=== PATIENT | female | born 1995 | race Caucasian/White ===

== ENCOUNTER 2017-06-28 16:27 | Inpatient (IN) | payer OTHER, SELFPAY ==
[~2017-06-28] VITALS: Ht 167.6 cm; Wt 62.4 kg
[~2017-06-28 16:27] MED LIST: ACET325 PO; CIPR500 PO; DOCU100 PO; FAMO20 PO; FLUC150A PO; LEVFLO500 PO; META800 PO; MIRALAX17 GM PO; NO ROUTINE MEDS; ONDA4ODT MM; SIME80CH PO; TRAM50 PO; Vitafol-Ob+Dha1 EACH PO
[2017-06-28 17:28] LABS: Source, Urine Clean Catch
[2017-06-28 17:30] LABS: BASOPHILS ABSOLUTE AUTO 0.05 K/mm3 (0.00-0.23); BASOPHILS PERCENT AUTO 0 % (0-2); EOSINOPHILS ABSOLUTE AUTO 0.14 K/mm3 (0.00-0.68); EOSINOPHILS PERCENT AUTO 1 % (0-6); Hematocrit 38.1 % (33.0-51.0); Hemoglobin 12.9 g/dL (11.5-16.0); IMMATURE GRAN ABSOLUTE AUTO 0.03 K/mm3 (0.00-0.10); IMMATURE GRAN PERCENT AUTO 0 % (0-1); LYMPHOCYTES ABSOLUTE AUTO 2.16 K/mm3 (0.84-5.20); LYMPHOCYTES PERCENT AUTO 18 % (21-46); MONOCYTES ABSOLUTE AUTO 0.72 K/mm3 (0.16-1.47); MONOCYTES PERCENT AUTO 6 % (4-13); Mean Corpuscular HGB 30.4 pg (26.0-34.0); Mean Corpuscular HGB Conc 33.9 g/dL (31.5-36.5); Mean Corpuscular Volume 90 fL (80-100); Mean Platelet Volume 10.2 fL (9.1-12.4); NEUTROPHILS ABSOLUTE AUTO 8.81 K/mm3 (1.96-9.15); NEUTROPHILS PERCENT AUTO 74 % (41-73); Platelet Count 196 K/mm3 (150-400); RDW Coefficient Variation 12.2 % (11.7-14.2); RDW Standard Deviation 39.8 fL (35.1-46.3); Red Blood Cell Count 4.25 M/mm3 (3.80-5.20); White Blood Cell Count 11.91 K/mm3 (4.00-11.30)
[2017-06-28 17:38] LABS: Appearance, Urine Cloudy (Clear); Bilirubin, Urine Neg (Neg); Blood, Urine 5+ (Neg); Glucose Qualitative, Urine Neg (Neg); Ketones, Urine 1+ (Neg); Leukocyte Esterase, Urine 3+ (Neg); Nitrite, Urine Pos (Neg); Protein, Urine 3+ (Neg); Urobilinogen, Urine NORM (Normal)
[2017-06-28 17:52] LABS: Color, Urine Yellow (P-Yellow)
[2017-06-28 17:54] LABS: Bacteria Few /hpf; Squamous Epithelial Cells Few /hpf (Few); White Blood Cells, Urine 25-50 /hpf (0-5)
[2017-06-28 17:54] LABS: Alanine Aminotransfer (ALT/SGP 17 U/L (12-78); Albumin, Blood 4.1 g/dL (3.4-5.0); Albumin/Globulin Ratio 1.1 (0.8-1.8); Alk Phos 65 U/L (50-136); Anion Gap 9 mmol/L (6-16); Aspartate Aminotrans (AST/SGOT 15 U/L (12-37); Bilirubin, Total 0.4 mg/dL (0.1-1.0); Blood Urea Nitrogen 10 mg/dL (8-24); Bun/Creatinine Ratio 17.4 (12.0-20.0); CO2, Blood 24 mmol/L (21-32); Calcium, Blood 9.2 mg/dL (8.5-10.1); Chloride, Blood 105 mmol/L (98-108); Creatinine, Blood 0.58 mg/dL (0.40-1.00); Globulin, Blood 3.7 g/dL (2.2-4.0); Glomerular Filtration Rate >60 (60-); Glucose, Blood 88 mg/dL (70-99); Potassium, Blood 3.4 mmol/L (3.5-5.5); Sodium, Blood 138 mmol/L (136-145); Total Protein, Blood 7.8 g/dL (6.4-8.2)
[2017-06-29] MEDS ORDERED: CRANBERRY250 MG PO (05:27)
[2017-06-29 06:07] LABS: BASOPHILS ABSOLUTE AUTO 0.03 K/mm3 (0.00-0.23); BASOPHILS PERCENT AUTO 0 % (0-2); EOSINOPHILS ABSOLUTE AUTO 0.12 K/mm3 (0.00-0.68); EOSINOPHILS PERCENT AUTO 2 % (0-6); Hematocrit 30.9 % (33.0-51.0); Hemoglobin 10.2 g/dL (11.5-16.0); IMMATURE GRAN ABSOLUTE AUTO 0.02 K/mm3 (0.00-0.10); IMMATURE GRAN PERCENT AUTO 0 % (0-1); LYMPHOCYTES ABSOLUTE AUTO 2.41 K/mm3 (0.84-5.20); LYMPHOCYTES PERCENT AUTO 30 % (21-46); MONOCYTES ABSOLUTE AUTO 0.72 K/mm3 (0.16-1.47); MONOCYTES PERCENT AUTO 9 % (4-13); Mean Corpuscular Volume 91 fL (80-100); Mean Platelet Volume 10.2 fL (9.1-12.4); NEUTROPHILS ABSOLUTE AUTO 4.82 K/mm3 (1.96-9.15); NEUTROPHILS PERCENT AUTO 59 % (41-73); Platelet Count 142 K/mm3 (150-400); RDW Coefficient Variation 12.4 % (11.7-14.2); RDW Standard Deviation 40.9 fL (35.1-46.3); White Blood Cell Count 8.12 K/mm3 (4.00-11.30)
[2017-06-29 06:39] LABS: Albumin, Blood 2.7 g/dL (3.4-5.0); Anion Gap 6 mmol/L (6-16); Blood Urea Nitrogen 13 mg/dL (8-24); Bun/Creatinine Ratio 20.9 (12.0-20.0); CO2, Blood 24 mmol/L (21-32); Chloride, Blood 112 mmol/L (98-108); Creatinine, Blood 0.62 mg/dL (0.40-1.00); Glomerular Filtration Rate >60 (60-); Glucose, Blood 93 mg/dL (70-99); Phosphorus, Blood 4.1 mg/dL (2.5-4.9); Potassium, Blood 3.7 mmol/L (3.5-5.5); Sodium, Blood 142 mmol/L (136-145)
[2017-06-29 06:40] LABS: Calcium, Blood 7.7 mg/dL (8.5-10.1)
[2017-07-01 05:30] LABS: BASOPHILS ABSOLUTE AUTO 0.02 K/mm3 (0.00-0.23); BASOPHILS PERCENT AUTO 0 % (0-2); EOSINOPHILS ABSOLUTE AUTO 0.17 K/mm3 (0.00-0.68); EOSINOPHILS PERCENT AUTO 3 % (0-6); Hematocrit 30.8 % (33.0-51.0); Hemoglobin 10.3 g/dL (11.5-16.0); IMMATURE GRAN ABSOLUTE AUTO 0.01 K/mm3 (0.00-0.10); IMMATURE GRAN PERCENT AUTO 0 % (0-1); LYMPHOCYTES ABSOLUTE AUTO 2.13 K/mm3 (0.84-5.20); LYMPHOCYTES PERCENT AUTO 38 % (21-46); MONOCYTES ABSOLUTE AUTO 0.35 K/mm3 (0.16-1.47); MONOCYTES PERCENT AUTO 6 % (4-13); Mean Corpuscular HGB 30.4 pg (26.0-34.0); Mean Corpuscular HGB Conc 33.4 g/dL (31.5-36.5); Mean Corpuscular Volume 91 fL (80-100); Mean Platelet Volume 10.1 fL (9.1-12.4); NEUTROPHILS ABSOLUTE AUTO 2.97 K/mm3 (1.96-9.15); NEUTROPHILS PERCENT AUTO 53 % (41-73); Platelet Count 149 K/mm3 (150-400); RDW Standard Deviation 39.7 fL (35.1-46.3); Red Blood Cell Count 3.39 M/mm3 (3.80-5.20); White Blood Cell Count 5.65 K/mm3 (4.00-11.30)
[2017-07-01 05:49] LABS: Anion Gap 6 mmol/L (6-16); Blood Urea Nitrogen 9 mg/dL (8-24); CO2, Blood 27 mmol/L (21-32); Calcium, Blood 7.8 mg/dL (8.5-10.1); Chloride, Blood 109 mmol/L (98-108); Creatinine, Blood 0.64 mg/dL (0.40-1.00); Glomerular Filtration Rate >60 (60-); Glucose, Blood 106 mg/dL (70-99); Sodium, Blood 142 mmol/L (136-145)
[2017-07-01] MEDS ORDERED: ACET325 PO (08:53)
[2017-07-01] MEDS ORDERED: FLUC150A PO (08:54)
[2017-07-01] MEDS ORDERED: DOCU100 PO (08:54)
[2017-07-01] MEDS ORDERED: ONDA4ODT PO (08:55)
[2017-07-01] MEDS ORDERED: AMOX875 PO (08:56)
[2017-07-01] MEDS ORDERED: TRAM50 PO (08:57)
[2017-10-10] MEDS ORDERED: AZO CRANBERRY1 EAC1 PO (14:34)
== END 2017-07-01 14:00 | disposition home or self-care (01) | DRG 690 ==
LOC: ER 16:27 → SURS 20:32
PROVIDERS: Emergency Medicine; Family Medicine; Internal Medicine
DX: N12 Tubulo-interstitial nephritis, not specified as acute or chronic (principal); E83.51 Hypocalcemia; E88.09 Other disorders of plasma-protein metabolism, not elsewhere classified; B96.20 Unspecified Escherichia coli [E. coli] as the cause of diseases classified elsewhere; E87.6 Hypokalemia; F17.210 Nicotine dependence, cigarettes, uncomplicated; R07.9 Chest pain, unspecified
CPT/HCPCS: 36415; 76770; 80048; 80053; 80069; 81001; 81025; 83605; 83690; 85025; 87040; 87077; 87086; 87186; 93005; 93010; 96361; 96374; 96375; 99285; J0696; J1170; J1885; J2405; J3010; J3480; J7030

== ENCOUNTER 2017-09-30 17:08 | Day surgery (SDC) | payer OTHER, SELFPAY ==
[~2017-09-30 17:08] MED LIST changes: +AMOX875 PO; +CRANBERRY250 MG PO; +ONDA4ODT PO
== END 2017-09-30 18:02 | disposition home or self-care (01) ==
LOC: ATC 17:08
DX: N93.8 Other specified abnormal uterine and vaginal bleeding (principal)
CPT/HCPCS: 96374; J0696

== ENCOUNTER 2017-10-01 07:13 | Day surgery (SDC) | payer OTHER, SELFPAY | END 2017-10-01 14:52 | disposition home or self-care (01) | LOC: ATC 07:13 | DX: N93.8 Other specified abnormal uterine and vaginal bleeding (principal); R53.83 Other fatigue; N12 Tubulo-interstitial nephritis, not specified as acute or chronic | CPT/HCPCS: 96374; J0696 ==

== ENCOUNTER 2017-10-03 00:24 | Day surgery (SDC) | payer OTHER, SELFPAY ==
[2017-10-10] MEDS ORDERED: AZO CRANBERRY1 EAC1 PO (14:34)
== END 2017-10-03 16:34 | disposition home or self-care (01) ==
LOC: ATC 00:24
DX: N10 Acute pyelonephritis (principal); N93.8 Other specified abnormal uterine and vaginal bleeding
CPT/HCPCS: 96374; J0696

== ENCOUNTER 2017-10-04 00:10 | Day surgery (SDC) | payer OTHER, SELFPAY ==
[2017-10-10] MEDS ORDERED: AZO CRANBERRY1 EAC1 PO (14:34)
== END 2017-10-04 17:01 | disposition home or self-care (01) ==
LOC: ATC 00:10
DX: N10 Acute pyelonephritis (principal); N93.8 Other specified abnormal uterine and vaginal bleeding
CPT/HCPCS: 96374; J0696

== ENCOUNTER 2017-10-05 01:03 | Day surgery (SDC) | payer OTHER, SELFPAY ==
[2017-10-10] MEDS ORDERED: AZO CRANBERRY1 EAC1 PO (14:34)
== END 2017-10-05 17:08 | disposition home or self-care (01) ==
LOC: ATC 01:03
DX: N10 Acute pyelonephritis (principal); N93.8 Other specified abnormal uterine and vaginal bleeding
CPT/HCPCS: 96374; J0696

== ENCOUNTER 2017-10-06 07:26 | Day surgery (SDC) | payer OTHER, SELFPAY ==
[2017-10-10] MEDS ORDERED: AZO CRANBERRY1 EAC1 PO (14:34)
== END 2017-10-06 17:15 | disposition home or self-care (01) ==
LOC: ATC 07:26
DX: N10 Acute pyelonephritis (principal); N93.9 Abnormal uterine and vaginal bleeding, unspecified
CPT/HCPCS: 96374; J0696

== ENCOUNTER 2017-10-07 00:27 | Day surgery (SDC) | payer OTHER, SELFPAY ==
[2017-10-10] MEDS ORDERED: AZO CRANBERRY1 EAC1 PO (14:34)
== END 2017-10-07 23:09 | disposition home or self-care (01) ==
LOC: ATC 00:27
DX: N10 Acute pyelonephritis (principal); N93.8 Other specified abnormal uterine and vaginal bleeding
CPT/HCPCS: J0696

== ENCOUNTER 2017-10-08 00:14 | Day surgery (SDC) | payer OTHER, SELFPAY ==
[2017-10-10] MEDS ORDERED: AZO CRANBERRY1 EAC1 PO (14:34)
== END 2017-10-08 17:35 | disposition home or self-care (01) ==
LOC: ATC 00:14
DX: N10 Acute pyelonephritis (principal); N93.8 Other specified abnormal uterine and vaginal bleeding
CPT/HCPCS: 96365; J0696

== ENCOUNTER → 2018-01-26 | Outpatient (CLI) | payer OTHER ==
[~2018-01-26] MED LIST changes: +AZO CRANBERRY1 EAC1 PO
== END | disposition home or self-care (01) ==
LOC: LAB SHORT 13:20 → PLD 13:20
DX: R87.810 Cervical high risk human papillomavirus (HPV) DNA test positive (principal); R87.610 Atypical squamous cells of undetermined significance on cytologic smear of cervix (ASC-US); N72 Inflammatory disease of cervix uteri
CPT/HCPCS: 88305

== ENCOUNTER → 2018-02-03 | Outpatient (CLI) | payer OTHER ==
[2018-02-04 09:55] LABS: Candida species (DNA Probe) Negative (NEGATIVE); G. vaginalis (DNA Probe) Positive (NEGATIVE); T. vaginalis (DNA Probe) Negative (NEGATIVE)
[2018-02-08 21:07] LABS: CHLAMYDIA TRACHOMATIS, NAA Negative (Negative); NEISSERIA GONORRHOEAE, NAA Negative (Negative)
== END | disposition home or self-care (01) ==
LOC: LAB 12:13 → LAB SHORT 12:13
PROVIDERS: Advanced Practice Midwife
DX: N76.0 Acute vaginitis (principal)
CPT/HCPCS: 87070; 87205; 87480; 87491; 87510; 87591; 87660